=== PATIENT | female | born 1985 | race Asian ===

== ENCOUNTER 2025-04-17 07:53 | Outpatient (REF) | payer OTHER, SELFPAY ==
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
--- NOTE | ~2025-04-17 | XR_ITS ---
EXAMINATION: XR ABDOMEN 2 VIEWS SUPINE ERECT HISTORY: R10.9 - Unspecified abdominal pain COMPARISON: There are no prior studies available for comparison. FINDINGS: Supine and upright views of the abdomen are submitted. The bowel gas pattern is unremarkable, without evidence of mechanical obstruction. There is no free intraperitoneal gas. There is a moderate to large amount of stool throughout the colon. No abnormal calcifications are identified. There are no abnormal soft tissue masses. The bones are intact. XR/XR abdomen min 2V IMPRESSION: Moderate to large amount of stool throughout the colon. Electronically signed by: Cornelius Pop MD 04/17/2025 10:08 AM [facility]
--- NOTE | ~2025-04-17 | XR_ITS ---
EXAMINATION: XR CERVICAL SPINE 2-3 VIEWS HISTORY: M54.2 - Cervicalgia COMPARISON: There are no prior studies available for comparison. FINDINGS: AP, lateral, and open-mouth odontoid views of the cervical spine are submitted. Osseous mineralization is normal. There is mild reversal of the normal cervical lordosis at the C4-5 level with slight anterolisthesis of C4 on C5. The vertebral bodies maintain normal height. The intervertebral disc spaces are preserved. The odontoid and lateral masses of C1 are intact. There is no prevertebral soft tissue swelling. XR/XR cervical spine 3V IMPRESSION: Mild reversal of the normal cervical lordosis at C4-5 with slight anterolisthesis of C4 on C5 which could be due to muscle spasm. Electronically signed by: Cornelius Pop MD 04/17/2025 10:10 AM [facility]
[2025-04-17 08:09] LABS: MANUAL DIFF FLAG NO
[2025-04-17 08:27] LABS: Hematocrit 38.2 % (37.0-47.0); Hemoglobin 12.9 g/dl (12.0-16.0); Imm Gran Abs Auto 0.01 X10*3/uL (0.00-0.03); Imm Gran Pct Auto 0.2 % (0.0-0.4); Lymphocytes Absolute Auto 2.9 X10*3/uL (1.2-4.9); Mean Corpuscular HGB Conc 33.8 g/dl (31.0-35.0); Mean Corpuscular Hemoglobin 29.9 pg (27.0-33.0); Mean Corpuscular Volume 88.6 fL (80.0-98.0); NRBC Abs Auto 0.000 X10*3/uL (0.0-0.012); NRBC Pct Auto 0.0 /100WBC (0.0-0.2); Platelet Count 252 X10*3/uL (160-400); Red Blood Count 4.31 X10*6/uL (4.20-5.50); White Blood Count 6.4 X10*3/uL (4.8-10.8)
[2025-04-17 09:32] LABS: Alanine Aminotransferase 21 U/L (0-31); Albumin Level 4.3 g/dL (3.5-5.0); Alkaline Phosphatase 74 U/L (39-117); Anion Gap 11 (12-20); Aspartate Amino Transferase 23 U/L (5-31); Blood Urea Nitrogen 10 mg/dL (9-16); Calcium 9.0 mg/dL (8.4-10.2); Carbon Dioxide 20 mmol/L (22-29); Chloride 111 mmol/L (96-108); Cholesterol 140 mg/dL (<200); Estimated Glomerular Filt Rate > 60; HDL Cholesterol 47 mg/dL (>40); Iron 82 mcg/dL (30-160); Magnesium 2.1 mg/dL (1.6-2.6); Percent Iron Saturation 28 % (15-50); Potassium 4.0 mmol/L (3.3-5.1); Sodium 138 mmol/L (135-145); Total Iron Binding Capacity 296 mcg/dL (228-428); Total Protein 7.0 g/dL (6.5-8.0); Triglycerides 73 mg/dL (<150); Unsaturated Iron Binding 214 ug/dL
[2025-04-17 10:08] LABS: Folate 10.7 ng/mL (> or = 4.0); Vitamin B12 303 pg/mL (200-900)
[2025-04-17 10:55] LABS: Reflex LDLD? No
[2025-04-21 16:28] LABS: Vitamin D 25-OH, D2 <4 ng/mL; Vitamin D 25-OH, D3 16 ng/mL; Vitamin D 25-OH, Total 16 ng/mL (30-100)
== END 2025-04-17 07:54 | disposition home or self-care (01) ==
LOC: HO.LAB 07:53
PROVIDERS: PCP Student in an Organized Health Care Education/Training Program; Visit Provider Student in an Organized Health Care Education/Training Program
DX: Z13.1 Encounter for screening for diabetes mellitus (principal); Z13.220 Encounter for screening for lipoid disorders; Z00.00 Encounter for general adult medical examination without abnormal findings; M54.2 Cervicalgia; M54.50 Low back pain, unspecified; E55.9 Vitamin D deficiency, unspecified; D64.9 Anemia, unspecified; R53.83 Other fatigue; Z86.2 Personal history of diseases of the blood and blood-forming organs and certain disorders involving the immune mechanism
CPT/HCPCS: 36415; 72040; 74019; 80053; 80061; 82306; 82607; 82746; 83036; 83540; 83735; 84443; 85025

== ENCOUNTER 2025-04-17 08:14 | Outpatient (AMB) | payer OTHER, SELFPAY ==
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
[2025-04-17 08:34] VITALS: BP 116/90; PULSE 75; RESP 18; TEMP 36.6; O2SAT 98; BMI 33.0
== END 2025-04-17 09:15 | disposition home or self-care (01) ==
PROVIDERS: PCP Student in an Organized Health Care Education/Training Program; Visit Provider Student in an Organized Health Care Education/Training Program
DX: M54.2 Cervicalgia (principal); M54.50 Low back pain, unspecified

== ENCOUNTER → 2025-04-17 09:25 | Outpatient (BNV) | payer OTHER, SELFPAY | PROVIDERS: PCP Student in an Organized Health Care Education/Training Program; Visit Provider Radiology Diagnostic Radiology | DX: R10.9 Unspecified abdominal pain (principal); M54.2 Cervicalgia | CPT/HCPCS: 72040; 74019 ==